=== PATIENT | female | born 1965 | race Caucasian/White ===

== ENCOUNTER 2016-03-12 10:23 | Emergency (ER) | payer OTHER, BC ==
[~2016-03-12] VITALS: Ht 160 cm; Wt 79.8 kg
[~2016-03-12 10:23] MED LIST: ALBU1AER9 INH; AMT50 PO; ASPEC81 PO; LEVO112T4 PO; LORA10TA37 PO; MAGNESIUM PO; MULT-506 PO; OXYC5TAB PO; TOPI200T6 PO; TPRSR/25 PO; VITAMIN B1 PO; WLLSR150 PO
[2016-03-12 10:26] VITALS: TEMP 36.4; Ht 160 cm; Wt 79.8 kg
[2016-03-12] MEDS ORDERED: SODIUM CHLORIDE 0.9% 1000ML 1,000 ML IV STA (10:43)
[2016-03-12] MEDS ORDERED: HYDROmorphone INJ 1 MG/ML SYR IV STA (10:43)
[2016-03-12] MEDS ORDERED: KETOROLAC TROMETHAMINE 30 MG/ML VIAL IV STA (10:43)
[2016-03-12] MEDS ORDERED: ACETAMINOPHEN 500 MG TAB PO STA (10:43)
[2016-03-12] MEDS ORDERED: METOCLOPRAMIDE HCL INJ 5 MG/ML 2 ML VIAL IV PRN (10:45)
[2016-03-12] MEDS ORDERED: TOPI100T20 PO (10:49)
--- NOTE | 2016-03-12 10:49 | EMERGENCY ROOM VISIT NOTE ---
History Report prepared by Damien: Godfrey Lopez Under the Supervision of: Dr. Lesly Richard M.D. First contact with patient: 10:35 Chief Complaint: HEADACHE Stated Complaint: SEVERE RIGHT SIDE HEADACHE History of Present Illness The patient is a 50 year old female who presents to the Emergency Room with complaints of a worsening headache that started prior to arrival today. She associates the headache with nausea and dizziness. She has a history of migraines, but she says this does not feel like a normal migraine. The patient denies any numbness or weakness. She is allergic to Prednisone and Imitrex. The patient has sinus tachycardia. She notes that she has no family history of blood clots or heart attacks. The patient has been having back pain after having a steroid injection on the 03 of March, but she is not here to be treated for that today. Source of History: patient Onset: Prior to arrival today Position: head Timing: worsening Associated Symptoms: + nausea, No numbness, No weakness Note: Associated symptoms: Dizziness. Review of Systems See HPI for pertinent positives & negatives. A total of 10 systems reviewed and were otherwise negative. Past Medical & Surgical Medical Problems: (1) GERD (gastroesophageal reflux disease) (2) Irregular bleeding (3) Menorrhagia (4) Migraine (5) Seasonal allergies Surgical Problems: (1) History of cholecystectomy (2) History of tubal ligation Family History FH: cancer FATHER (CLL) FH: heart disease FATHER FHx: brain tumor Hypertension MOTHER Social History Smoking Status: Never Smoker Alcohol Use: none Drug Use: none Marital Status: Housing Status: lives with family Occupation Status: employed Current/Historical Medications Scheduled Amitriptyline Hcl (Elavil), 25 MG PO HS Aspirin (Aspirin EC Low Dose), 81 MG PO QAM Bupropion HCl (Bupropion HCl Sr), 150 MG PO BID Levothyroxine Sodium (Levothyroxine Sodium), 1 TAB PO QAM Metoprolol Succinate (Metoprolol Succinate ER), 25 MG PO QAM Multivitamin (Multivitamin), 1 TAB PO QAM Topiramate (Topamax), 200 MG PO BID Topiramate (Topamax), 100 MG PO BID Scheduled PRN Albuterol (Proair Hfa), 2 PUFFS INH QID PRN for Shortness of Breath Oxycodone/Acetaminophen 5MG/325MG (Roxicet 5MG/325MG), 1-2 TAB PO Q4H PRN for Pain Allergies Coded Allergies: Prednisone (Verified Allergy, Intermediate, BODY RASH, 12/12/15) Sumatriptan (Verified Adverse Reaction, Intermediate, Imitrex injection: Hemiplegic migraine, 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 HEENT: No icterus, moist mucous membranes NECK: No meningismus, trachea is midline. CARDIOVASCULAR: Regular rate, normal perfusion RESPIRATORY: Unlabored breathing. Clear to auscultation. GASTROINTESTINAL: Non-tender GENITOURINARY: No flank tenderness MUSCULOSKELETAL: Full range of motion NEUROLOGIC: No acute gross focal deficits. PSYCHIATRIC: Normal affect SKIN: Normal for ethnicity. Medical Decision & Procedures ER Provider Diagnostic Interpretation: CT results as stated below per my review and radiologist interpretation: CT HEAD WITHOUT CONTRAST (CT) CLINICAL HISTORY: Headache with change in the quality of the headache. Left-sided headache. COMPARISON STUDY: 12/30/2013 TECHNIQUE: Axial CT of the brain is performed from the vertex to the skull base. IV contrast was not administered for this examination. CT DOSE: 690.05 mGycm FINDINGS: No intra or extra-axial mass lesions are visualized. There is no CT evidence of acute cortical infarction. There is no evidence of midline shift. There is no acute hemorrhage. No calvarial fractures are visualized. There is no evidence of pathologic ventricular dilatation. There is no evidence of acute sinusitis IMPRESSION: Normal noncontrast head CT. Electronically signed by: Raleigh Stack M.D. 03/12/2016 11:18 AM Dictated Date/Time: 03/12/2016 11:14 AM Laboratory Results 03/12/16 11:20 Red Blood Count 4.46, Mean Corpuscular Volume 88.8, Mean Corpuscular Hemoglobin 30.9, Mean Corpuscular Hemoglobin Concent 34.8, Mean Platelet Volume 9.8, Neutrophils (%) (Auto) 62.8, Lymphocytes (%) (Auto) 23.2, Monocytes (%) (Auto) 11.7, Eosinophils (%) (Auto) 1.7, Basophils (%) (Auto) 0.3, Neutrophils # (Auto ) 2.25, Lymphocytes # (Auto) 0.83, Monocytes # (Auto) 0.42, Eosinophils # (Auto ) 0.06, Basophils # (Auto) 0.01 03/12/16 11:20 Test 03/12/16 11:20 White Blood Count 3.58 K/uL (4.8-10.8) Red Blood Count 4.46 M/uL (4.2-5.4) Hemoglobin 13.8 g/dL (12.0-16.0) Hematocrit 39.6 % (37-47) Mean Corpuscular Volume 88.8 fL (80-100) Mean Corpuscular Hemoglobin 30.9 pg (25-34) Mean Corpuscular Hemoglobin Concent 34.8 g/dl (32-36) Platelet Count 175 K/uL (130-400) Mean Platelet Volume 9.8 fL (7.4-10.4) Neutrophils (%) (Auto) 62.8 % Lymphocytes (%) (Auto) 23.2 % Monocytes (%) (Auto) 11.7 % Eosinophils (%) (Auto) 1.7 % Basophils (%) (Auto) 0.3 % Neutrophils # (Auto) 2.25 K/uL (1.4-6.5) Lymphocytes # (Auto) 0.83 K/uL (1.2-3.4) Monocytes # (Auto) 0.42 K/uL (0.11-0.59) Eosinophils # (Auto) 0.06 K/uL (0-0.5) Basophils # (Auto) 0.01 K/uL (0-0.2) RDW Standard Deviation 41.0 fL (36.4-46.3) RDW Coefficient of Variation 12.7 % (11.5-14.5) Immature Granulocyte % (Auto) 0.3 % Immature Granulocyte # (Auto) 0.01 K/uL (0.00-0.02) Anion Gap 9.0 mmol/L (3-11) Est Creatinine Clear Calc Drug Dose 66.6 ml/min Estimated GFR () 75.5 Estimated GFR (Non- 65.2 BUN/Creatinine Ratio 19.3 (10-20) Calcium Level 8.2 mg/dl (8.5-10.1) Labs reviewed by ED physician. Medications Administered Medications (Trade) Dose Ordered Sig/Na Route Start Time Stop Time Status Last Admin Dose Admin Acetaminophen (Tylenol Tab) 1,000 mg NOW STAT PO 03/12/16 10:43 03/12/16 10:48 DC 03/12/16 11:33 1,000 MG Hydromorphone HCl 1 mg 1 mg PRN STAT IV 03/12/16 10:43 03/12/16 10:48 DC 03/12/16 11:33 1 MG Sodium Chloride (Nss 1000ml) 1,000 ml @ 0 mls/hr Q0M STAT IV 03/12/16 10:43 03/12/16 10:48 DC 03/12/16 11:30 0 MLS/HR Ketorolac Tromethamine (Toradol Inj) 30 mg NOW STAT IV 03/12/16 10:43 03/12/16 10:48 DC 03/12/16 11:31 30 MG Metoclopramide HCl (Reglan Inj) 10 mg Q6H PRN IV 03/12/16 10:45 04/11/16 10:44 03/12/16 11:32 10 MG ED Course 1039: Past medical records reviewed. The patient was evaluated in room B8. A complete history and physical examination was performed. 1043: Ordered Toradol Inj 30 mg IV, NSS 1000 ml @ 0 mls/hr Wide Open IV, Dilaudid Inj 1 mg IV, Tylenol Tab 1000 mg PO. 1045: Ordered Reglan Inj 10 mg IV PRN. 1209: I reevaluated the patient and she is resting comfortably. The patient verbally expressed understanding and agreement of the treatment plan. The patient will be discharged. 1230: Ordered Percocet 5/325MG Home Pack 1 homepack PO, Zofran ODT 4MG Home Pack 1 homepack PO. Medical Decision Differential diagnoses include: migraine, tumor, bleed. 50-year-old presents into the emergency room from occupational health for evaluation of gradual onset of diffuse predominantly left-sided headache in the context of prior migraines although today's headache feels different. No focal neurologic complaints. CT head negative patient medicated for pain comfortable on reexamination prior to discharge. No fevers no meningismus and patient appears nontoxic. She is advised to follow back up with occupational health for any persistent symptoms and given both Zofran and Percocet home packs. She no further concerns prior to discharge. Impression Primary Impression: Headache Scribe Attestation The scribe's documentation has been prepared under my direction and personally reviewed by me in its entirety. I confirm that the note above accurately reflects all work, treatment, procedures, and medical decision making performed by me. Departure Information Dispostion Home / Self-Care Referrals Keri Schmidt PA-C (PCP) Forms HOME CARE DOCUMENTATION FORM, IMPORTANT VISIT INFORMATION Patient Instructions A Signature Page, Headache Pain, My [facility]
--- NOTE | 2016-03-12 11:20 | DIAGNOSTIC IMAGING REPORT ---
CT HEAD WITHOUT CONTRAST (CT) CLINICAL HISTORY: Headache with change in the quality of the headache. Left-sided headache. COMPARISON STUDY: 12/30/2013 TECHNIQUE: Axial CT of the brain is performed from the vertex to the skull base. IV contrast was not administered for this examination. CT DOSE: 690.05 mGycm FINDINGS: No intra or extra-axial mass lesions are visualized. There is no CT evidence of acute cortical infarction. There is no evidence of midline shift. There is no acute hemorrhage. No calvarial fractures are visualized. There is no evidence of pathologic ventricular dilatation. There is no evidence of acute sinusitis IMPRESSION: Normal noncontrast head CT. Electronically signed by: Raleigh Stack M.D. 03/12/2016 11:18 AM Dictated Date/Time: 03/12/2016 11:14 AM
[2016-03-12 11:56] LABS: BASO % 0.3 %; BASO ABS # 0.01 K/uL (0-0.2); COMPLETE YES; EOS % 1.7 %; HEMATOCRIT 39.6 % (37-47); IG% 0.3 %; LYMPH % 23.2 %; LYMPH ABS # 0.83 K/uL (1.2-3.4); MEAN CELL VOLUME 88.8 fL (80-100); MEAN CORPUSCULAR HEMOGLOBIN 30.9 pg (25-34); MEAN CORPUSCULAR HGB CONC 34.8 g/dl (32-36); MEAN PLATELET VOLUME 9.8 fL (7.4-10.4); MONO % 11.7 %; NEUT % 62.8 %; PLATELET COUNT 175 K/uL (130-400); RED BLOOD COUNT 4.46 M/uL (4.2-5.4); WHITE BLOOD COUNT 3.58 K/uL (4.8-10.8)
[2016-03-12 12:12] LABS: BUN/CREATININE RATIO 19.3 (10-20); CALCIUM 8.2 mg/dl (8.5-10.1); POTASSIUM 3.8 mmol/L (3.5-5.1)
[2016-03-12] MEDS ORDERED: ONDANSETRON HOME PACK 4MG OD TAB PO ONE (12:30)
[2016-03-12] MEDS ORDERED: PERCOCET HOME PACK PO ONE (12:30)
[2016-03-12 12:33] VITALS: BP 107/75; PULSE 65; O2SAT 95
== END 2016-03-12 12:35 | disposition home or self-care (01) ==
LOC: C.EDB 10:26
DX: R51 Headache (principal); K21.9 Gastro-esophageal reflux disease without esophagitis; J30.2 Other seasonal allergic rhinitis; Z80.9 Family history of malignant neoplasm, unspecified; Z82.49 Family history of ischemic heart disease and other diseases of the circulatory system; Z79.82 Long term (current) use of aspirin; Z79.899 Other long term (current) drug therapy

== ENCOUNTER → 2016-03-30 | Outpatient (CLI) | payer BC ==
[~2016-03-30] MED LIST changes: -LORA10TA37 PO; -MAGNESIUM PO; +TOPI100T20 PO; -VITAMIN B1 PO
[2016-03-30 13:07] LABS: THYROID STIMULATING HORMONE 1.79 uIu/ml (0.300-4.500)
== END | disposition home or self-care (01) ==
LOC: C.LAB 11:01
PROVIDERS: ATTEND Internal Medicine Endocrinology, Diabetes & Metabolism
DX: E03.9 Hypothyroidism, unspecified (principal)

== ENCOUNTER → 2016-03-31 | Outpatient (CLI) | payer BC | END | disposition home or self-care (01) | LOC: C.LAB1850 09:17 | PROVIDERS: ATTEND Internal Medicine Endocrinology, Diabetes & Metabolism | DX: E83.51 Hypocalcemia (principal) ==

== ENCOUNTER → 2016-04-29 | Outpatient (CLI) | payer BC | END | disposition home or self-care (01) | LOC: C.MAMM 07:52 | PROVIDERS: ATTEND Internal Medicine Endocrinology, Diabetes & Metabolism | DX: E83.51 Hypocalcemia (principal); M85.88 Other specified disorders of bone density and structure, other site ==

== ENCOUNTER → 2016-05-28 | Outpatient (CLI) | payer BC ==
[2016-05-28 13:40] LABS: CALCIUM 8.9 mg/dl (8.5-10.1)
== END | disposition home or self-care (01) ==
LOC: C.LAB 11:59
PROVIDERS: ATTEND Internal Medicine Endocrinology, Diabetes & Metabolism
DX: E83.51 Hypocalcemia (principal)

== ENCOUNTER → 2016-07-23 | Outpatient (CLI) | payer BC ==
--- NOTE | 2016-07-23 16:30 | MAMMOGRAPHY REPORT ---
BILATERAL DIGITAL SCREENING MAMMOGRAM TOMOSYNTHESIS WITH CAD: 07/23/2016 TECHNIQUE: Breast tomosynthesis in addition to standard 2D mammography was performed. Current study was also evaluated with a Computer Aided Detection (CAD) system. COMPARISON: Comparison is made to exams dated: 07/21/2015 mammogram, 07/18/2014 mammogram, 07/25/2013 ultrasound, 07/25/2013 mammogram, 07/17/2013 mammogram, and 07/14/2012 mammogram - [facility]. BREAST COMPOSITION: The tissue of both breasts is heterogeneously dense, which may obscure small ma sses. FINDINGS: No suspicious masses, calcifications, or areas of architectural distortion are noted in e ither breast. There has been no significant interval change compared to prior exams. IMPRESSION: ACR BI-RADS CATEGORY 1: NEGATIVE There is no mammographic evidence of malignancy. A 1 year screening mammogram is recommended. The p atient will receive written notification of the results. Approximately 10% of breast cancers are not detected with mammography. A negative mammographic repor t should not delay biopsy if a clinically suggestive mass is present. Ines Mcgee M.D. ah/:07/23/2016 14:47:12 Food Preparation Worker: Brianne HOGAN(Kylie)(M), [facility] letter sent: Normal 1/2 BI-RADS Code: ACR BI-RADS Category 1: Negative
== END | disposition home or self-care (01) ==
LOC: C.MAMM 08:46
PROVIDERS: ATTEND Physician Assistant
DX: Z12.31 Encounter for screening mammogram for malignant neoplasm of breast (principal)

== ENCOUNTER → 2016-08-17 | Outpatient (CLI) | payer BC ==
[~2016-08-17] MED LIST changes: +GADAVIST IV PRN
--- NOTE | 2016-08-17 20:52 | DIAGNOSTIC IMAGING REPORT ---
MRI OF THE BRAIN WITHOUT AND WITH IV CONTRAST CLINICAL HISTORY: Visual disturbance. History of migraines. Speech difficulty. Memory loss. COMPARISON STUDY: 01/24/2013 TECHNIQUE: MRI of the brain was performed from the vertex to the skull base utilizing various T1 and T2 weighted sequences. Following the IV administration of 7 mL of Gadavist contrast, additional enhanced images were obtained. FINDINGS: Sagittal T1, axial diffusion, proton density and T2 weighted axial, coronal FLAIR, and pre and post axial T1-weighted images were acquired. These were supplemented with post gadolinium coronal T1 weighted images. 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 Axial diffusion-weighted images reveal no evidence of acute or subacute infarction. There is no evidence of ventricular dilatation. Proton density T2-weighted and FLAIR images reveal single tiny foci of increased T2 signal within the frontal white matter, similar to the prior 2012 study. Given the lack of change these are not felt to be of clinical significance. There are no abnormal flow voids. There is no evidence of pathologic enhancement. IMPRESSION: 1. No acute intracranial findings. 2. 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 2 punctate foci of increased T2 signal within the frontal white matter, unchanged from 2013. These are not felt to be of clinical significance 4. No evidence of acute or subacute infarction. Electronically signed by: Raleigh Stack M.D. 08/17/2016 8:51 PM Dictated Date/Time: 08/17/2016 8:48 PM
== END | disposition home or self-care (01) ==
LOC: C.MRI 08:07
PROVIDERS: ATTEND Physician Assistant
DX: H53.9 Unspecified visual disturbance (principal); R41.3 Other amnesia; R47.89 Other speech disturbances; D35.4 Benign neoplasm of pineal gland

== ENCOUNTER → 2016-08-27 | Outpatient (CLI) | payer BC ==
[~2016-08-27] MED LIST changes: -GADAVIST IV PRN
[2016-08-27 15:08] LABS: CALCIUM 9.1 mg/dl (8.5-10.1)
[2016-08-27 15:32] LABS: THYROID STIMULATING HORMONE 0.839 uIu/ml (0.300-4.500)
[2016-08-27 17:39] LABS: LYME DISEASE AB IGG NEG (NEG); LYME DISEASE AB IGM NEG (NEG)
== END | disposition home or self-care (01) ==
LOC: C.LAB 13:26
PROVIDERS: ATTEND Internal Medicine Endocrinology, Diabetes & Metabolism
DX: H53.9 Unspecified visual disturbance (principal); R41.3 Other amnesia; R47.89 Other speech disturbances; R53.83 Other fatigue; E55.9 Vitamin D deficiency, unspecified; Z86.69 Personal history of other diseases of the nervous system and sense organs

== ENCOUNTER → 2017-01-18 | Outpatient (CLI) | payer BC ==
[2017-01-19 15:00] LABS: ALBUMIN 4.3 G/DL (3.8-4.8); GAMMA GLOBULIN 0.9 G/DL (0.8-1.7)
== END | disposition home or self-care (01) ==
LOC: C.LAB 10:36
PROVIDERS: ATTEND Psychiatry & Neurology Neurology
DX: R20.0 Anesthesia of skin (principal)